=== PATIENT | female | born 1985 | race Caucasian/White ===

== ENCOUNTER 2018-06-28 14:15 | Observation (INO) | payer OTHER ==
[2018-06-28 15:07] LABS: PLATELET COUNT 274 10^3/uL (150-400)
--- NOTE | 2018-06-28 20:00 | GHP ---
[f rep st] PREOP HISTORY AND PHYSICAL DATE OF ADMISSION: 06/28/2018 DIAGNOSES: Intrauterine at 38-3/7 weeks' gestation and borderline blood pressures at home. HISTORY OF PRESENT ILLNESS: The patient is a 32-year-old 2, para 1-0-0-1, who will be at 39 weeks' gestation on Sunday. The patient's blood pressure has been slowly creeping up over the last several weeks. Her blood pressures have been 130s over 70s in the office. She was instructed to fol low up and check her blood pressure at home, so she went to a [employer], and her blood pressure was 160s over a number she cannot remember. She called the office and was instructed to come to Labor an d Delivery. The patient is feeling good movement. She denies any nausea, vomiting, fevers, ch ills, headache, or changes in vision. A blood pressure on arrival was in the 130s over 70s. Repeat blood pressure was the same. The patient denies any headache or changes in vision. PHYSICAL EXAM: VITAL SIGNS: As described above. GENERAL APPEARANCE: Alert and oriented x3. MUSCU LOSKELETAL: Grossly intact. PSYCHIATRIC: Appropriate affect. NEUROLOGICAL: Grossly intact. She has 2+ DTRs bilaterally. HEART: Regular. LUNGS: Clear to auscultation bilaterally. ABDOMEN: Gra vid, nondistended, and nontender. EXTREMITIES: No calf tenderness or edema. She has mild swelling of bilateral lower extremities. heart tracing is category 1, and she is having occasional cont ractions. ASSESSMENT/PLAN: -induced hypertension labs were obtained. We had a long discussion about management options and surveillance. She did check the blood pressure with the machine at [facility] . We do not know if it is calibrated appropriately, and I doubt the level is accurate. We reviewed -induced hypertension precautions and instructed her to follow up on Sunday for a repeat blo od pressure check or sooner if she feels off at all or wants to be reexamined. Labor precautions, ki ck counts, and -induced hypertension precautions were reviewed with the patient. The susan allen was discharged to home. She is scheduled for a section due to a history of a fourth-degre e laceration and traumatic . She will come in on Sunday instead for blood pressure check, and w josesito discussed delivery if blood pressure is in the 140s over 90s or any other indications for delivery. The patient was discharged to home. /[id number]/MODL
== END 2018-06-28 16:39 | disposition home or self-care (01) ==
LOC: FLD 14:15
PROVIDERS: ADMIT Obstetrics & Gynecology; ATTEND Obstetrics & Gynecology
DX: O13.3 Gestational [pregnancy-induced] hypertension without significant proteinuria, third trimester (principal); Z3A.38 38 weeks gestation of pregnancy
CPT/HCPCS: 59025; G0378

== ENCOUNTER 2018-07-01 19:29 | Inpatient (IN) | payer OTHER ==
[2018-07-01] MEDS ORDERED: CITRIC ACID/SODIUM CITRATE 30 ML UDCUP PO ONE (20:06)
[2018-07-01] MEDS ORDERED: LR 500 ML IV ONE (20:06)
[2018-07-01] MEDS ORDERED: ceFAZolin 2 GM/DEXTROSE 100 ML IV ONE (20:06)
[2018-07-01] MEDS ORDERED: LR 1,000 ML IV SCH (20:30)
[2018-07-01 20:34] LABS: PLATELET COUNT 270 10^3/uL (150-400)
[2018-07-01] MEDS ORDERED: OXYTOCIN 10 UNIT/ML VIAL ONE (21:04)
[2018-07-01] MEDS ORDERED: OLIVE OIL 118 ML BTL MISC ONE (21:04)
[2018-07-01] MEDS ORDERED: TERBUTALINE SULFATE 1 MG/ML VIAL ONE (21:04)
[2018-07-01] MEDS ORDERED: MISOPROSTOL 200 MCG TAB ONE (21:04)
[2018-07-01] MEDS ORDERED: AMMONIA AROMATIC 1 EACH AMP IH ONE (21:04)
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
[2018-07-01] MEDS ORDERED: diphenhydrAMINE 25 MG CAP PO PRN (21:38)
[2018-07-01] MEDS ORDERED: METOCLOPRAMIDE 10 MG/2 ML VIAL ONE (21:44)
[2018-07-01] MEDS ORDERED: OXYTOCIN 100 UNITS/10 ML VIAL ONE (21:44)
[2018-07-01] MEDS ORDERED: ONDANSETRON 4 MG/2 ML VIAL ONE (21:45)
[2018-07-01] MEDS ORDERED: PHENYLEPHRINE HCL 100 MCG/ML SYR ONE (21:45)
[2018-07-01] MEDS ORDERED: ePHEDrine SULFATE 25 MG/5 ML SYR ONE (21:45)
--- NOTE | 2018-07-01 21:54 | PDANEPAE ---
ANE Past Medical History - Pulmonary History Hx Sleep Apnea: No Sleep Apnea Screening Result - Last Documented: Negative ANE Review of Systems Review of Systems: ANE Patient History - Allergies Allergies/Adverse Reactions: No Known Allergies Allergy (Verified 07/01/18 19:44) - Home Medications Home Medications: AMBIEN 05/16/10 [Last Taken Unknown] Clonazepam 05/16/10 [Last Taken Unknown] Gava 05/16/10 [Last Taken 05/16/10] INOSITOL 05/16/10 [Last Taken 05/16/10] Dha 07/01/18 [Last Taken 07/01/18 08:00] Fish Oil 1,000 mg Softgel 07/01/18 [Last Taken 07/01/18 0800] Iron 07/01/18 [Last Taken 07/01/18 08:00] 07/01/18 [Last Taken 06/30/18 21:00] Probiotic 07/01/18 [Last Taken 07/01/18 08:00] Tums 500MG (*) 07/01/18 [Last Taken 06/30/18 2200] Unisom 07/01/18 [Last Taken 06/28/18 22:00] - NPO status NPO Since - Liquids (Date): 07/01/18 NPO Since - Liquids (Time): 19:45 NPO Since - Solids (Date): 07/01/18 NPO Since - Solids (Time): 13:45 - Smoking Hx Smoking Status: Never smoked ANE Labs/Vital Signs - Labs Result Diagrams: 07/01/18 20:20 07/01/18 20:20 - Vital Signs Blood Pressure: 145/91 Heart Rate: 87 Respiratory Rate: 16 O2 Sat (%): 98 Height: 175.26 cm Weight: 82.1 kg ANE Physical Exam - Airway Mallampati Score: Class 2 - ASA Status ASA Status: II ANE Anesthesia Plan Anesthesia Plan: spinal Urgent/Emergent Case: James alvarez completed preop but documented later for safe timely pt care
[2018-07-01] MEDS ORDERED: fentaNYL 100 MCG/2 ML INJ ONE ×2 (22:42→22:58)
[2018-07-01] MEDS ORDERED: MEPERIDINE 25 MG/0.5 ML AMP IVP PRN (23:30)
[2018-07-01] MEDS ORDERED: fentaNYL 100 MCG/2 ML INJ IVP PRN (23:30)
[2018-07-01] MEDS ORDERED: NALOXONE HCL 0.4 MG/ML INJ IVP PRN (23:30)
[2018-07-01] MEDS ORDERED: HYDROmorphONE/DILAUDID 1 MG/ML INJ IVP PRN (23:30)
[2018-07-01] MEDS ORDERED: ONDANSETRON 4 MG/2 ML VIAL IVP PRN (23:30)
--- NOTE | 2018-07-01 23:32 | POSTANESTH ---
Post Anesthetic Evaluation Cardiovascular Status: Normal, Stable Respiratory Status: Normal, Stable Level of Consciousness/Mental Status: Can Participate in Eval Pain Control: Adequate, Prn Tx Ordered Nausea/Vomiting Control: Adequate, Prn Tx Ordered Complications Possibly Related to Anesthesia: None Noted
[2018-07-01] MEDS ORDERED: BISACODYL 10 MG SUPP PR PRN (23:40)
[2018-07-01] MEDS ORDERED: MAGNESIUM HYDROXIDE 30 ML UDCUP PO PRN (23:40)
[2018-07-01] MEDS ORDERED: LACTULOSE 20 GM/30 ML UDCUP PO PRN (23:40)
[2018-07-01] MEDS ORDERED: POLYETHYLENE GLYCOL 3350 17 GM PKT PO PRN (23:40)
--- NOTE | 2018-07-01 23:47 | OBDEL ---
Info Type: Primary Presentation at Delivery: Vertex L&D Analgesia/Anesthesia Type: Spinal GBS+: No Intrapartum Medications: Discontinued Medications Generic Name Dose Route Start Last Admin Trade Name Meeta PRN Reason Stop Dose Admin Citric Acid/Sodium Citrate 30 ml 07/01/18 20:06 07/01/18 21:18 Bicitra PO 07/01/18 20:07 30 ml ONCALL ONE Administration Cefazolin Sodium/Dextrose 100 mls @ 200 mls/hr 07/01/18 20:06 07/01/18 21:45 Ancef IV 07/01/18 20:35 100 mls ONCALL ONE Administration Protocol Lactated Ringer's 500 mls @ 0 mls/hr 07/01/18 20:06 07/01/18 21:18 Lr IV 07/01/18 20:07 500 mls ONCE ONE Administration As Directed - Infant Care Provider Vascular Neurologist/PARAFFIN MACHINE OPERATOR: Shilpi Kitchen Operative Report - Delivery Pre-op Diagnoses: IUP at 38w6d, preeclampsia without severe features, h/o traumatic first Post-op Diagnoses: same, OP presentation History of Prior Section: No Number of Prior Sections: 0 Nulliparous Prior to Delivery: No Indications for Current Section: Other (Specify) (h/o FAVD with fourth degree tear) Procedure: Unscheduled Surgeon: Annabel Gay Accordion Tuner: Arabella Haywood Anesthesiologist: Saleem Hartmann Complications: Nucal Cord (x1, loose and reduced) Findings: nl ut/tubes and ovaries bilat. clear fluid upon amniotomy. NC x1, bulb suction upon . Delayed cord clamp x 1 min. Double layer closure. Irrigation in post culdesac/ and pelvic gutters. clear urine at completion. IV Fluid (ml): 800 EBL: 800 Sylva Data BABAR: 07/09/18 Gestational Age: 38 week(s) and 6 day(s) Clark Delivery Date: 07/01/18 Delivery Time: 22:30 Sex of : Female Weight (gm): 3525 g Score (1 Min): 8 Score (5 Min): 9 ICD10 Worksheet Patient Problems: Problems Problem Status Onset S/P primary low transverse Acute Pre-eclampsia affecting childbirth Acute
--- NOTE | 2018-07-01 23:57 | POSTOPPROG ---
Post Op Note Date of Operation: 07/01/18 Surgeon: Annabel Gay Sports Specialist: Arabella Haywood SA Anesthesiologist: Saleem Hartmann MD Anesthesia: Spinal Pre-op Diagnosis: IUP at 38w6d, h/o traumatic , preeclampsia Post-op Diagnosis: same, OP presentation Indication: prior FAVD and fourth degree lac, set for 07/05 but had preeclampsia Procedure: primary section Findings: nl ut/ov/and tubes, OP presentation Inf/Abcess present in the surg proc area at time of surgery?: No Depth: Organ Space EBL: 500-1000 (800) Total fluids administered: 800 Complications: none Bowel Protocol: Yes Clean Closure Performed: Yes Specimen(s): none
[2018-07-02] MEDS ORDERED: ACETAMINOPHEN 325 MG TAB ONE (00:12)
[2018-07-02] MEDS: ACETAMINOPHEN 325 MG TAB PO SCH ×5 (00:12→23:56)
[2018-07-02] MEDS: IBUPROFEN 600 MG TAB PO SCH ×5 (00:14→23:55)
[2018-07-02] MEDS: KETOROLAC 30 MG/1 ML SDV IVP SCH ×4 (00:14→18:01)
--- NOTE | 2018-07-02 10:25 | OBPP ---
Progress Note Assessment/Plan: Assessment: POD1 s/p unscheduled elective PLTCS due to h/o 4th degree perineal laceration with prior delivery. Decision to delivery based on new dx preeclampsia without severe features at 38w6d. - Doing great, routine cares. - BP WNL, no s/sx of evolving PIH. - AM Hct reassuring, will start PO iron. - Rh pos, Rubella immune. Laboratory Tests 07/01/18 07/02/18 20:20 06:00 Hct 38.4 34.7 L JM Subjective/ Course: Doing great, has been up and around a bit, pain well controlled. BF going well, baby doing well. Objective: 07/02/18 06:00 07/01/18 20:20 Patient ABO/Rh A POSITIVE 07/01/18 20:20 Uric Acid 5.2 mg/dL (2.5-6.8) 07/01/18 20:20 Total Bilirubin 0.4 mg/dL (0.1-1.4) 07/01/18 20:20 Conjugated Bilirubin 0.3 mg/dL (0.0-0.5) 07/01/18 20:20 Unconjugated Bilirubin 0.1 mg/dL (0.0-1.1) 07/01/18 20:20 AST 20 IU/L (14-46) 07/01/18 20:20 ALT 25 IU/L (9-52) 07/01/18 20:20 Lactate Dehydrogenase 439 IU/L (313-618) 07/01/18 20:20 Temp Pulse Resp BP Pulse Ox 37.1 C 84 16 118/74 96 07/02/18 08:00 07/02/18 08:00 07/02/18 08:00 07/02/18 08:00 07/02/18 08:00 Physical Exam - Physical Exam Abdomen: incision (Still bandaged, will remove > 24 hrs postop)
[2018-07-02] MEDS: SENNOSIDES/DOCUSATE SODIUM TAB PO SCH ×2 (14:18→23:56)
[2018-07-03] MEDS: IBUPROFEN 600 MG TAB PO SCH ×3 (06:34→17:56)
[2018-07-03] MEDS: ACETAMINOPHEN 325 MG TAB PO SCH ×3 (06:34→17:56)
[2018-07-03] MEDS: SENNOSIDES/DOCUSATE SODIUM TAB PO SCH (08:06)
[2018-07-03] MEDS: FERRO-SEQUELS 65 MG TAB.ER PO SCH (08:07)
--- NOTE | 2018-07-03 10:17 | OBPP ---
Progress Note Assessment/Plan: Assessment: 32 y/o POD #1.5 s/p Primary LTCS secondary to h/o 4th degree laceration and elevated BP @ 38 + weeks Plan: Pt is doing well on po meds. Started iron today for iron. Encourage ambulation , pt may shower. support and bowel protocol. 07/03/18 10:18 Subjective/ Course: Doing great, has been up and around a bit, pain well controlled. BF going well, baby doing well. 07/03/18 10:11 Pt is doing well. She has good pain control with only Ibuprofen, and Tylenol. She feels good with the abdominal binder and heating pad. She has not needed Oxycodone yet. She is ambulating and voiding without difficulty. No BM yet, but + flatus. Breast feeding is going well and baby is doing well. Objective: 07/02/18 06:00 07/01/18 20:20 Patient ABO/Rh A POSITIVE 07/01/18 20:20 Uric Acid 5.2 mg/dL (2.5-6.8) 07/01/18 20:20 Total Bilirubin 0.4 mg/dL (0.1-1.4) 07/01/18 20:20 Conjugated Bilirubin 0.3 mg/dL (0.0-0.5) 07/01/18 20:20 Unconjugated Bilirubin 0.1 mg/dL (0.0-1.1) 07/01/18 20:20 AST 20 IU/L (14-46) 07/01/18 20:20 ALT 25 IU/L (9-52) 07/01/18 20:20 Lactate Dehydrogenase 439 IU/L (313-618) 07/01/18 20:20 Temp Pulse Resp BP Pulse Ox 37.0 C 86 15 119/74 92 07/03/18 08:00 07/03/18 08:00 07/03/18 08:00 07/03/18 08:00 07/03/18 08:00 Uterine Position/Fundal Height: Umbilicus -2 Uterine Tone: Firm Physical Exam - Physical Exam General Appearance: alert, no apparent distress Neck: non-tender, full range of motion, supple Respiratory: chest non-tender, lungs clear, normal breath sounds Cardiac/Chest: regular rate, rhythm Abdomen: normal bowel sounds, incision (c/d/i) Extremities: swelling (no), Rosie's sign (neg)
--- NOTE | 2018-07-03 15:12 | PDPAINCON ---
Pain Management Consultation Patient referred by : Aniket - Subjective Pain is: low, well controlled - Objective Technique: spinal opioid Sensory and motor exam: block has resolved, no apparent ill effects Vital signs: stable - Assessment/Plan Assessment/Plan: pain well-controlled, continue current mgmt (POD 2 s/p C/S with IT morphine. No complaints of pruritis, nausea, weakness, paresthesias. Doing well.)
[2018-07-04] MEDS: ACETAMINOPHEN 325 MG TAB PO SCH ×3 (00:08→12:46)
[2018-07-04] MEDS: IBUPROFEN 600 MG TAB PO SCH ×3 (00:08→12:45)
[2018-07-04] MEDS ORDERED: ALPRAZolam 0.5 MG TAB PO ONE (01:00)
--- NOTE | 2018-07-04 09:55 | OBPP ---
Progress Note Assessment/Plan: Assessment: 1) 32 y/o G3 now P2 s/p PCS (h/o 4th degree lac) at 38 6/7 wks for preeclampsia without severe features POD #3 - pt it stable 2) Anemia - pt is asymptomatic Plan: BPs are labile with highest 150/92 last night and most recently 131/79; pt is asymptomatic at this time Pt is stable for d/c home later today after another BP is checked Instructions reviewed with pt Rx given for Oxy IR Cont PNV, Motrin, Tylenol and iron supplement Pelvic rest Lifting restrictions given RTC in 1 week for BP check and 2 weeks for an incision check 07/04/18 09:56 Subjective/ Course: Doing great, has been up and around a bit, pain well controlled. BF going well, baby doing well. 07/03/18 10:11 Pt is doing well. She has good pain control with only Ibuprofen, and Tylenol. She feels good with the abdominal binder and heating pad. She has not needed Oxycodone yet. She is ambulating and voiding without difficulty. No BM yet, but + flatus. Breast feeding is going well and baby is doing well. 07/04/18 09:57 Pt seen and examined. Pain is well controlled, not taking any narcotics. Pt is OOB, nicolas reg diet, voiding without difficulty and had a BM this morning. Denies any f/c/n/v/CP or SOB. Denies any visual changes, HAs, RUQ or epigastric pain. BF is going well, milk came in early this morning. Mild lochia. Ready to go home , but nervous about BPs. She lives with a RN and has access to a BP cuff at home. Objective: 07/02/18 06:00 07/01/18 20:20 Patient ABO/Rh A POSITIVE 07/01/18 20:20 Uric Acid 5.2 mg/dL (2.5-6.8) 07/01/18 20:20 Total Bilirubin 0.4 mg/dL (0.1-1.4) 07/01/18 20:20 Conjugated Bilirubin 0.3 mg/dL (0.0-0.5) 07/01/18 20:20 Unconjugated Bilirubin 0.1 mg/dL (0.0-1.1) 07/01/18 20:20 AST 20 IU/L (14-46) 07/01/18 20:20 ALT 25 IU/L (9-52) 07/01/18 20:20 Lactate Dehydrogenase 439 IU/L (313-618) 07/01/18 20:20 Temp Pulse Resp BP Pulse Ox 36.9 C 77 14 131/79 H 96 07/04/18 08:00 07/04/18 08:00 07/04/18 08:00 07/04/18 08:00 07/04/18 08:00 Uterine Position/Fundal Height: Umbilicus -2 Uterine Tone: Firm Physical Exam - Physical Exam General Appearance: WD/WN, alert, no apparent distress Respiratory: lungs clear, normal breath sounds Cardiac/Chest: regular rate, rhythm Abdomen: normal bowel sounds, non-tender, soft, incision (C/D/I with steri strips in place) Extremities: non-tender, normal inspection DTR- Lower Extremities: Plantar (R): 2+, Plantar (L): 2+ Skin: normal color, warm/dry Neuro/Psych: alert, normal mood/affect, oriented x 3
--- NOTE | 2018-07-04 10:05 | OBGCSDC ---
General Delivery Information - General Info : 3 Para: 2 Abortions: 1 Type: Primary L&D Analgesia/Anesthesia Type: Spinal Admission Date: 07/01/18 Labs: Patient ABO/Rh A POSITIVE 07/01/18 20:20 Hct 34.7 % (38.0-47.0) L 07/02/18 06:00 - Hospital Course : Doing great, has been up and around a bit, pain well controlled. BF going well, baby doing well. 07/03/18 10:11 Pt is doing well. She has good pain control with only Ibuprofen, and Tylenol. She feels good with the abdominal binder and heating pad. She has not needed Oxycodone yet. She is ambulating and voiding without difficulty. No BM yet, but + flatus. Breast feeding is going well and baby is doing well. 07/04/18 09:57 Pt seen and examined. Pain is well controlled, not taking any narcotics. Pt is OOB, nicolas reg diet, voiding without difficulty and had a BM this morning. Denies any f/c/n/v/CP or SOB. Denies any visual changes, HAs, RUQ or epigastric pain. BF is going well, milk came in early this morning. Mild lochia. Ready to go home , but nervous about BPs. She lives with a RN and has access to a BP cuff at home. - Delivery Providers Surgeon: Annabel Gay Waste Machine Operator: Arabella Haywood Anesthesiologist: Saleem Hartmann - Delivery Number of Prior Sections: 0 Indications for Current Section: Other (Specify) (h/o FAVD with fourth degree tear) Surgical Procedures: Unscheduled Intra-op Complications: Nucal Cord (x1, loose and reduced) EBL: 800 Data BABAR: 07/09/18 Gestational Age: 39 week(s) and 2 day(s) [facility] Delivery Date: 07/01/18 Delivery Time: 22:30 Sex of Infant: Female [place] Weight (gm): 3525 g Score (1 Min): 8 Score (5 Min): 9 Discharge Information - Discharge Information Condition: Good Instruction/Follow Up: One Week (for a blood pressure check), Two Weeks (for an incision check), Four Weeks (for a mood check), Six Weeks (for a routine pp check)
[2018-07-04] MEDS: FERRO-SEQUELS 65 MG TAB.ER PO SCH (10:18)
[2018-07-04] MEDS: SIMETHICONE 80 MG TAB CHEW PO SCH (10:18)
[2018-07-04 11:37] VITALS: BP 151/80
== END 2018-07-04 13:30 | disposition home or self-care (01) | DRG 788 ==
LOC: FLD 19:29 → FOB 07-02 02:01
PROVIDERS: ADMIT Obstetrics & Gynecology; ATTEND Obstetrics & Gynecology
PROC: 10D00Z1 Extraction of Products of Conception, Low, Open Approach (ICD-10-PCS; principal; 2018-07-01)
DX: O14.03 Mild to moderate pre-eclampsia, third trimester (principal); O69.81X0 Labor and delivery complicated by cord around neck, without compression, not applicable or unspecified; O99.013 Anemia complicating pregnancy, third trimester; O99.343 Other mental disorders complicating pregnancy, third trimester; F43.10 Post-traumatic stress disorder, unspecified; Z3A.39 39 weeks gestation of pregnancy; Z37.0 Single live birth
CPT/HCPCS: J0690; J1885; J2370; J2405; J2590; J2765; J3010; J3105

== ENCOUNTER 2018-07-08 14:10 | Observation (INO) | payer OTHER ==
[2018-07-08 15:16] LABS: PLATELET COUNT 362 10^3/uL (150-400)
[2018-07-08] MEDS: ACETAMINOPHEN 325 MG TAB PO PRN ×2 (17:17→23:03)
[2018-07-08] MEDS: IBUPROFEN 600 MG TAB PO PRN (17:18)
[2018-07-08] MEDS ORDERED: CALCIUM GLUC 10% 1 GM/10 ML VIAL IVP PRN (18:18)
[2018-07-08] MEDS ORDERED: MAGNESIUM SULF 4 GM/WATER 100 ML IV ONE (18:18)
[2018-07-08] MEDS: Mag Sulf 500 ML IV SCH (19:55)
[2018-07-09] MEDS: CALCIUM CARBONATE 500 MG CHEWABLE TAB PO PRN ×3 (00:28→16:42)
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
[2018-07-09] MEDS: ACETAMINOPHEN 500 MG TAB PO PRN (03:44)
[2018-07-09] MEDS: Mag Sulf 500 ML IV SCH ×2 (05:41→14:50)
[2018-07-09] MEDS ORDERED: SODIUM CL NASAL 45 ML BTL EACHNARE PRN (08:01)
[2018-07-09] MEDS: IBUPROFEN 600 MG TAB PO PRN ×3 (10:38→22:40)
--- NOTE | 2018-07-09 10:43 | OBPP ---
Progress Note Assessment/Plan: Assessment: 32 y/o POD 8 s/p LTCS secondary h/o 4th degree and pre eclampsia. re admitted with PP pre eclampsia on MgSo4 Plan: Pt is overall doing well. BP are stable and none in severe range. She will have Tums and Ibuprofen with small sips. D/c MgSo4 tonight and will monitor BP off MgSo4 and see if meds needed. Gave reassurance. 07/09/18 10:44 Subjective/ Course: 07/09/18 10:38 Pt is doing well this am. She has a RUSS but was initially reluctant to take Ibuprofen because of concerns for possible upset stomach due to her being NPO. She is very thirsty, but otherwise doing ok. Breast feeding is going well and she continues to have good milk supply and baby is doing well. She is going to take Tums and Ibuprofen now for her RUSS. We discussed her BP monitoring, all now in low levels and would not qualify for anti-HTN meds. Objective: 07/08/18 15:05 07/08/18 15:05 Uric Acid 5.3 mg/dL (2.5-6.8) 07/08/18 15:05 Total Bilirubin 0.2 mg/dL (0.1-1.4) 07/08/18 15:05 Conjugated Bilirubin 0.2 mg/dL (0.0-0.5) 07/08/18 15:05 Unconjugated Bilirubin 0.0 mg/dL (0.0-1.1) 07/08/18 15:05 AST 25 IU/L (14-46) 07/08/18 15:05 ALT 55 IU/L (9-52) H 07/08/18 15:05 Lactate Dehydrogenase 494 IU/L (313-618) 07/08/18 15:05 BP 133/78, 125/689, 131/87, 119/71, 149/79, 138/82, 155/92( highest value), 152/ 86, 133/70, 141/68 total I/O 12 hour overnight shift 1409/ 1350 Uterine Position/Fundal Height: Umbilicus -2 Uterine Tone: Firm Physical Exam - Physical Exam General Appearance: alert, no apparent distress Neck: non-tender, full range of motion, supple Respiratory: chest non-tender, lungs clear, normal breath sounds Cardiac/Chest: regular rate, rhythm Abdomen: normal bowel sounds, incision (c/d/i) Extremities: swelling (no), Rosie's sign (neg) DTR- Lower Extremities: Knee (R): 2+, Knee (L): 2+
[2018-07-09] MEDS ORDERED: diphenhydrAMINE 25 MG CAP PO PRN (21:05)
[2018-07-10] MEDS: IBUPROFEN 600 MG TAB PO PRN (05:36)
--- NOTE | 2018-07-10 10:08 | OBPP ---
Progress Note Assessment/Plan: Assessment: 32 y/o POD #9 s/p LTCS secondary h/o 4th degree and preeclampsia, re-admitted with PP preeclampsia s/p MgSo4 HD # 2 Plan: BPs labile, highest BP 155/86 at 0900 this am and as low as 114/70 at 1330 / Pt is asymptomatic at this time s/p MgSO4 x 24 hrs, discontinued at 2000 last night Pt admits to anxiety about her BPs and is seeing a therapist BPs at this time do not meet criteria for antihypertensives Plan for d/c home today with close followup RTC in 48 hrs for BP check and next week for 2 week incision check and recheck BP at that time Pt to keep a diary of BPs-to check once daily in the morning Discussed Lexapro-L2 drug that is safe in to help with her anxiety and she wants to talk with her therapist first Recommend increasing water intake to 3-5 L/day while BF and since recently on MgSO4 07/10/18 10:09 Subjective/ Course: 07/09/18 10:38 Pt is doing well this am. She has a RUSS but was initially reluctant to take Ibuprofen because of concerns for possible upset stomach due to her being NPO. She is very thirsty, but otherwise doing ok. Breast feeding is going well and she continues to have good milk supply and baby is doing well. She is going to take Tums and Ibuprofen now for her RUSS. We discussed her BP monitoring, all now in low levels and would not qualify for anti-HTN meds. 07/10/18 10:14 Pt seen and examined. She is doing well, no further RUSS and vision changes noted since off MgSO4. Minimal incisional pain. Mild lochia. HAD BM this am. Voiding without difficulty. BF is going well. She admits to being anxious and being sent home and having elevated BPs. Objective: 07/08/18 15:05 07/08/18 15:05 Uric Acid 5.3 mg/dL (2.5-6.8) 07/08/18 15:05 Total Bilirubin 0.2 mg/dL (0.1-1.4) 07/08/18 15:05 Conjugated Bilirubin 0.2 mg/dL (0.0-0.5) 07/08/18 15:05 Unconjugated Bilirubin 0.0 mg/dL (0.0-1.1) 07/08/18 15:05 AST 25 IU/L (14-46) 07/08/18 15:05 ALT 55 IU/L (9-52) H 07/08/18 15:05 Lactate Dehydrogenase 494 IU/L (313-618) 07/08/18 15:05 Uterine Position/Fundal Height: Umbilicus -2 Uterine Tone: Firm Physical Exam - Physical Exam General Appearance: WD/WN, alert, no apparent distress Respiratory: lungs clear Cardiac/Chest: regular rate, rhythm Abdomen: normal bowel sounds, non-tender, soft, incision (C/D/I) Extremities: non-tender, normal inspection DTR- Lower Extremities: Knee (R): 2+, Knee (L): 2+ Skin: normal color, warm/dry Neuro/Psych: alert, normal mood/affect, oriented x 3
[2018-07-10] MEDS: ACETAMINOPHEN 500 MG TAB PO PRN (11:11)
--- NOTE | 2018-07-16 13:36 | GDS ---
[f rep st] DISCHARGE SUMMARY HOSPITAL COURSE: Patient is a 32-year-old 3, para 2 who underwent a primary low transverse section on 07/01/2018, for a history of 4th degree laceration, and preeclampsia. The patient's course was initially uncomplicated. Her blood pressures decreased and she was discharged home. She was instructed to follow up in the office for a blood pressure check and when she presented in clinic, she had blood pressures 170/94 , 156/90. She had several additional blood pressures 160s over 80s, but mostly 130s to 150s over 70s, 80s. The patient declined headaches, changes in vision, nausea, and vomiting. She was overall feeling well. Patient was admitted for observation and treatment with magnesium sulfate. Patient was stable throughout her hospital stay, and never developed any preeclamptic symptoms. Blood pressures were labile, highest 150-160's/80's , and as low was 110's/70's. Patient did received magnesium sulfate for 24 hours. She admits to some anxiety about her blood pressures and is seeing a therapist. We discussed that her blood pressure at this time does not meet the criteria for antihypertensives. Plan for discharge home with close followup. The patient is to return in 48 hours for blood pressure check in the office and then next week for her 2 week incision check and will recheck blood pressure at that time. Instructed the patient to keep a diary of blood pressures, and to check once daily in the morning, and limit her salt intake. Discussed Lexapro, which is L2 drug that is safe in , to help with her anxiety and she wants to talk with her therapist first. Recommend she increase her water intake to 3 to 5 L per day while and since recently on magnesium sulfate. Patient is being discharged home in stable condition. /[id number]/MODL MTDD
== END 2018-07-10 15:20 | disposition home or self-care (01) ==
LOC: FLD 14:10
PROVIDERS: ADMIT Obstetrics & Gynecology; ATTEND Obstetrics & Gynecology
PROC: 3E033KZ Introduction of Other Diagnostic Substance into Peripheral Vein, Percutaneous Approach (ICD-10-PCS; principal; 2018-07-08)
DX: O14.95 Unspecified pre-eclampsia, complicating the puerperium (principal); O99.345 Other mental disorders complicating the puerperium; F43.12 Post-traumatic stress disorder, chronic; F32.9 Major depressive disorder, single episode, unspecified
CPT/HCPCS: G0378 ×2; J0610; J3475